=== PATIENT | female | born 1940 | race Caucasian/White ===

== ENCOUNTER 2022-03-26 13:36 | Outpatient (CLI) | payer MEDICARE, SELFPAY ==
[2022-03-26 18:28] LABS: Chloride* 103 mmol/L (96-114); Potassium* 4.9 mmol/L (3.6-5.1); Sodium* 139 mmol/L (135-149)
[2022-03-26 18:30] LABS: Cholesterol* 165 mg/dL (90-199)
[2022-03-26 18:31] LABS: Blood Urea Nitrogen* 15 mg/dL (7-30); Carbon Dioxide* 27 mmol/L (20-32); Creatinine* 0.7 mg/dL (0.5-1.5); Estimated Glomerular Filt Rate 86 ml/min; Glucose* 81 mg/dL (60-115); Triglycerides* 86 mg/dL (40-149)
[2022-03-26 18:32] LABS: Calcium* 9.8 mg/dL (8.4-10.6); HDL Cholesterol* 80 mg/dL (>=50); LDL Cholesterol Calculated 68 mg/dL (<100)
== END 2022-03-26 13:37 | disposition home or self-care (01) ==
PROVIDERS: PCP Family Medicine; Visit Provider Family Medicine
DX: Z00.00 Encounter for general adult medical examination without abnormal findings (principal); I10 Essential (primary) hypertension; E78.5 Hyperlipidemia, unspecified
CPT/HCPCS: 80048; 80061

== ENCOUNTER 2023-07-14 09:58 | Outpatient (CLI) | payer OTHER, SELFPAY | END 2023-07-14 09:59 | disposition home or self-care (01) | PROVIDERS: PCP Family Medicine; Visit Provider Family Medicine | DX: E78.5 Hyperlipidemia, unspecified (principal); I10 Essential (primary) hypertension; R53.83 Other fatigue; Z13.29 Encounter for screening for other suspected endocrine disorder | CPT/HCPCS: 80048; 80061; 84443 ==

== ENCOUNTER 2024-07-08 10:15 | Outpatient (CLI) | payer MEDICARE, SELFPAY | END 2024-07-08 10:16 | disposition home or self-care (01) | PROVIDERS: PCP Family Medicine; Visit Provider Family Medicine | DX: R53.83 Other fatigue (principal); I10 Essential (primary) hypertension; E78.00 Pure hypercholesterolemia, unspecified | CPT/HCPCS: 80048; 80061; 82607 ==

== ENCOUNTER 2025-02-09 12:30 | Emergency (ER) | payer MEDICARE, SELFPAY ==
[2025-02-09] VITALS (27 sets, daily range): BP systolic 111–156; BP diastolic 58–82; PULSE 73–88; RESP 4–27; TEMP 37.1; O2SAT 91–100; BMI 18.6
--- NOTE | 2025-02-09 13:04 | CRLHL7_ITS ---
For Patients: As a result of the Century Cures Act, medical imaging exams and procedure reports are released immediately into your electronic medical record. You may view this report before your referring provider. If you have questions, please contact your health care provider. INDICATION: Continuous vertigo. TECHNIQUE: CTA head using intravenous contrast with bolus tracking, 3D angiographic rendering using maximum intensity projection (MIP) and images permanently archived. CTA neck using intravenous contrast with bolus tracking, 3D angiographic rendering using maximum intensity projection (MIP) and images permanently archived. FINDINGS: CTA head: There is scattered intracranial atherosclerotic disease. There is normal opacification of the intracranial vasculature. There is no large vessel occlusion or significant intracranial stenosis. No aneurysm is identified. CTA neck: There is carotid atherosclerosis bilaterally. There is atherosclerotic plaque in the proximal left ICA resulting in a mild stenosis, less than 50% by NASCET. There is no significant right carotid artery stenosis or dissection. There is no significant vertebral artery stenosis or dissection. Degenerative changes are noted in the cervical spine. IMPRESSION: No acute intracranial abnormality at CTA. Mild proximal left ICA stenosis, less than 50% by NASCET. Please note that all CT scans at this facility use dose modulation, iterative reconstruction, and/or weight-based dosing when appropriate to reduce radiation dose to as low as reasonably achievable. Dictated by Jason Farmer MD @ 02/09/2025 3:33:54 PM (Electronically Signed)
--- NOTE | 2025-02-09 13:04 | CRLHL7_ITS ---
For Patients: As a result of the Century Cures Act, medical imaging exams and procedure reports are released immediately into your electronic medical record. You may view this report before your referring provider. If you have questions, please contact your health care provider. INDICATION: CONTINUOUS VERTIGO COMPARISON: None TECHNIQUE: CT of the head without contrast. FINDINGS: Brain Parenchyma: Mild global cortical involutional changes. No acute infarct, acute intracranial hemorrhage, mass effect, or midline shift. Faint periventricular and supraventricular white matter hypodensity, suggestive of chronic microvascular ischemic changes. Ventricles: Mild ventricular enlargement, commensurate with the degree of cortical involutional changes and sulcal prominence. Extra-axial Spaces: No abnormal fluid collection. Paranasal sinuses: No significant mucosal thickening. Orbits: Unremarkable Mastoid Sinuses: Unremarkable Cranium: No acute fracture Soft tissues: Unremarkable IMPRESSION: No CT evidence of an acute intracranial process. Please note that all CT scans at this facility use dose modulation, iterative reconstruction, and/or weight-based dosing when appropriate to reduce radiation dose to as low as reasonably achievable. Dictated by Adria Thoedore MD @ 02/09/2025 2:09:29 PM (Electronically Signed)
[2025-02-09] MEDS: ONDANSETRON 2 MG/ML inj 4 MG IVP (13:22)
[2025-02-09] MEDS: MECLIZINE HCL 25 MG TABLET PO (13:22)
[2025-02-09 13:24] LABS: Lactate* 2.6 mmol/L (0.5-1.9)
--- NOTE | 2025-02-09 13:25 | ED.GENADULT ---
HPI - General Adult General Date Seen: 02/09/25 Chief complaint: Dizziness/Vertigo Stated complaint: Anxiety attack Time Seen by Provider: 02/09/25 13:00 History of Present Illness HPI narrative: 84-year-old female with a past medical history of hypertension, dyslipidemia, fibromyalgia, and 1 previous history of vertigo (years ago, patient does not remember dates or cause). She presents to the ER today by private car for acute onset of vertigo. She has been healthy and well lately. She was normal this morning when she got up and went for a walk with her and felt fine. At about 10:00 a.m. this morning she was leaving her apartment to go to the [employer] in her apartment building when she had onset of siding spinning dizziness, unsteadiness, like her head is floating, and vertigo. Symptoms have been persistent since onset. However she was stubborn and wanted to go get her hair styled. She went through a hair styling point with symptoms of spinning dizziness and unsteadiness. Symptoms were persistent and after her visit to the [employer] [facility] she told her that she wanted to go lay down. However her symptoms got worse so they called 911. She was checked out by EMS. They were offered EMS transport to the hospital but they chose to come to the ER by private car. She is still having symptoms of spinning vertigo while she is here. She is nauseous but has not vomited. She does not have a headache. No diplopia or blurry vision. She does have chronic hearing loss but no new change with hearing. No tinnitus. No numbness in her face. No numbness or weakness in her arms or legs. No facial droop. No slurred speech. No known head trauma. She is on baby aspirin but she is not anticoagulated. She is not having any chest pain. No palpitations. She did not fall. No syncope. No abdominal pain. No back pain. No swelling in her legs. Related Data Home Medications ?Medication ?Instructions ?Recorded ?Confirmed alendronate 1 tab PO DAILY 02/09/25 02/09/25 Previous Rx's ?Medication ?Instructions ?Recorded aspirin 81 mg tablet,delayed 81 mg PO QDAY #100 tabs 06/12/23 release alendronate 70 mg tablet 70 mg PO .Weekly #12 tabs 07/08/24 amlodipine 5 mg-benazepril 20 mg 2 cap PO DAILY #180 caps 07/08/24 capsule atorvastatin 10 mg tablet 10 mg PO .Bedtime #90 tabs 07/08/24 hydrochlorothiazide 12.5 mg tablet 12.5 mg PO QDAY #90 tabs 07/08/24 meclizine 25 mg tablet 25 mg PO TID #15 tabs 02/09/25 ondansetron HCl 4 mg tablet 4 mg PO Q8H PRN nausea and 02/09/25 vomiting #10 tabs Allergies Allergy/AdvReac Type Severity Reaction Status Date / Time codeine Allergy Mild Chest Pain Verified 02/09/25 13:57 latex Allergy Unknown Verified 02/09/25 13:57 [facility] Medical History Hypertension (08/25/12) ?I10 - Essential (primary) hypertension (ICD-10) Hyperlipidemia (08/25/12) ?E78.5 - Hyperlipidemia, unspecified (ICD-10) Fibromyalgia (08/25/12) ?M79.7 - Fibromyalgia (ICD-10) Osteoarthritis of lumbar spine ?M47.816 - Spondylosis without myelopathy or radiculopathy, lumbar region (ICD-10) Osteopenia (08/25/12) ?M85.80 - Other specified disorders of bone density and structure, unspecified site (ICD-10) Insomnia ?G47.00 - Insomnia, unspecified (ICD-10) Seasonal allergies ?J30.2 - Other seasonal allergic rhinitis (ICD-10) Polyp of colon (08/25/12) ?K63.5 - Polyp of colon (ICD-10) Peripheral vascular disease ?I73.9 - Peripheral vascular disease, unspecified (ICD-10) Hearing loss (08/25/12) ?H91.90 - Unspecified hearing loss, unspecified ear (ICD-10) Anosmia ?R43.0 - Anosmia (ICD-10) Surgical History Status post cholecystectomy ?Z90.49 - Acquired absence of other specified parts of digestive tract (ICD-10) Status post cataract extraction ?Z98.49 - Cataract extraction status, unspecified eye (ICD-10) Status post carpal tunnel release ?Z98.890 - Other specified postprocedural states (ICD-10) Status post bunionectomy ?Z98.890 - Other specified postprocedural states (ICD-10) Status post appendectomy ?Z90.49 - Acquired absence of other specified parts of digestive tract (ICD-10) Social History What is your current living situation?: I presently have a place to live Problems where you live: no known problems In the past 12 months, utilities in danger of being shut off: no In past 12 months, lack of transportation kept you from medical appts, meetings, work, or getting things needed for daily living: no In the past 12 mos, have been you worried that your food would run out before you had money to buy more?: never true In the past 12 mos, the food you bought just didn't last and you didn't have money to buy more?: never true Smoking Status: Never smoker Do you use any of these nicotine containing products: None Second hand tobacco smoke exposure: No (quit many yrsd ago) Non-prescribed substance use: denies use How often does anyone, including family, friends and others, physically hurt you: never How often does anyone, including family, friends and others, insult or talk down to you: rarely How often does anyone, including family, friends and others, threaten you with harm: never How often does anyone, including family, friends and others, scream or curse at you: never Health Related Social Needs: Other personal risk factors, not elsewhere classified (Z91.89) Exam Narrative: Exam Narrative: Constitutional: Appears well-developed and well-nourished. Alert. Conversant, but looks sick. She is holding an emesis bag because she is very nauseous. Non toxic. HENT: Head: Atraumatic. Nose: Nose normal. Mouth/Throat: Oral mucosa is clear and moist. no trismus. Pharynx normal. Tonsils symmetric. No tonsillar enlargement, erythema, or exudate. Eyes: Conjunctivae normal. EOM normal. Pupils equal, round, and reactive to light. No scleral icterus. Neck: Normal range of motion. Neck supple. No tracheal deviation present. No JVD Cardiovascular: Normal rate, regular rhythm. No gallop. No friction rub. No murmur heard. Symmetric radial and PT artery pulses Pulmonary/Chest: Effort normal. No stridor. No respiratory distress. No wheezes. No rales. No rhonchi . No tenderness. Abdominal: Soft.. No distension. No mass. No tenderness. No rebound. No guarding. Musculoskeletal: RUE: Normal range of motion. No tenderness. No deformity LUE: Normal range of motion. No tenderness. No deformity RLE: Normal range of motion. No edema. No tenderness. No deformity LLE: Normal range of motion. No edema. No tenderness. No deformity Lymph: No cervical adenopathy. Neurological: Mental status normal. Attention normal. Alert and oriented x3. GCS 15. Memory normal. Speech fluent. Cognition normal. Cranial Nerves intact II-XII except I did not formally test gag or visual acuity. EOMI. Palate elevates symmetrically and tongue protrudes in the midline. Strength: 5/5 trapezius on the right and left 5/5 deltoid on the right and left 5/5 biceps on the right and left 5/5 triceps on the right and left 5/5 hydro electric station operator on the right and left 5/5 thumb opposition on the right and left 5/5 finger abduction on the right and left 5/5 hip flexors (L3) on the right and left 5/5 quadriceps (L4) on the right and left 5/5 tibialis anterior on the right and left 5/5 EHL (L5) on the right and left 5/5 gastrocnemius (S1) on the right and left 5/5 hamstring on the right and left Sensation intact to light touch in both upper extremities (C4-T1) Sensation intact to light touch in Both lower extremities (L4-S1). Finger to nose and coordination normal. Gait not assessed due to unsteadiness and nausea Skin: Skin is warm and dry. No rash noted. No pallor. Normal capillary refill. Psychiatric: Normal mood. Normal affect. Const: Vital Signs, click to edit/add: Vital Signs - 24 hr 02/09/25 12:49 02/09/25 13:00 02/09/25 13:03 Temperature 98.7 F Pulse Rate 81 Pulse Rate [Pulse Oximeter] 86 75 Respiratory Rate 16 Blood Pressure 141/71 H Blood Pressure [Ri ght Upper Arm] 111/62 Pulse Oximetry 99 99 Oxygen Delivery Me thod Room Air 02/09/25 13:04 02/09/25 13:15 02/09/25 13:22 Temperature Pulse Rate 81 80 76 Pulse Rate [Pulse Oximeter] Respiratory Rate 22 13 15 Blood Pressure 150/72 H Blood Pressure [Ri ght Upper Arm] Pulse Oximetry 98 97 97 Oxygen Delivery Me thod 02/09/25 13:30 02/09/25 13:36 02/09/25 13:56 Temperature Pulse Rate 79 73 88 Pulse Rate [Pulse Oximeter] Respiratory Rate 21 8 L 19 Blood Pressure 156/82 H Blood Pressure [Ri ght Upper Arm] Pulse Oximetry 98 96 100 Oxygen Delivery Me thod 02/09/25 13:59 02/09/25 14:00 02/09/25 14:10 Temperature Pulse Rate 86 88 81 Pulse Rate [Pulse Oximeter] Respiratory Rate 10 L 27 H 16 Blood Pressure 136/69 124/58 L Blood Pressure [Ri ght Upper Arm] Pulse Oximetry 100 100 100 Oxygen Delivery Me thod 02/09/25 14:15 02/09/25 14:30 02/09/25 14:31 Temperature Pulse Rate 86 81 80 Pulse Rate [Pulse Oximeter] Respiratory Rate 26 H 21 14 Blood Pressure 145/73 H Blood Pressure [Ri ght Upper Arm] Pulse Oximetry 100 98 97 Oxygen Delivery Me thod 02/09/25 14:35 02/09/25 14:45 02/09/25 14:50 Temperature Pulse Rate 83 79 77 Pulse Rate [Pulse Oximeter] Respiratory Rate 27 H 27 H 17 Blood Pressure 139/67 127/64 Blood Pressure [Ri ght Upper Arm] Pulse Oximetry 95 94 91 Oxygen Delivery Me thod 02/09/25 15:00 02/09/25 15:05 Temperature Pulse Rate 77 75 Pulse Rate [Pulse Oximeter] Respiratory Rate 16 12 Blood Pressure 125/64 Blood Pressure [Ri ght Upper Arm] Pulse Oximetry 95 94 Oxygen Delivery Me thod Course Course ED Course: Patient arrived and was brought immediately to ER bed 5. Nurses came to get me. They were concerned about possible stroke. We did order meds for nausea and vertigo and I ordered stat head CT scan and CT angiogram. On my initial exam she is having isolated vertigo without any other clear brain stand symptoms. Would favor that this is probably a peripheral vertigo, but given age, risk factors, as well as intensity and continuous nature of vertigo, cannot completely rule out a central cause such as cerebellar infarct or hemorrhage. Reevaluation(s) Reevaluation #1: A stroke team activation was initiated for this patient because of her vertigo. However after my initial evaluation the seems to be more suggestive of a peripheral vertigo. She did pain CT imaging and CTA which are normal. Recheck-after Zofran still nauseous Recheck-after Reglan and meclizine she is feeling much better. Vertigo resolved. She is ambulatory without assistance. No other evolving neurologic symptoms. She feels comfortable discharging home. Vital Signs Vital signs: Initial Vital Signs Temperature 98.7 F 02/09/25 12:49 Temperature Source Temporal Artery Scan 02/09/25 12:49 Pulse Rate 86 02/09/25 12:49 Respiratory Rate 16 02/09/25 12:49 Blood Pressure 111/62 02/09/25 12:49 Blood Pressure Mean 78 02/09/25 12:49 Blood Pressure Position Sitting 02/09/25 12:49 Pulse Oximetry 99 02/09/25 12:49 Oxygen Delivery Method Room Air 02/09/25 12:49 Vital Signs Temperature 98.7 F 02/09/25 12:49 Pulse Rate 86 02/09/25 12:49 Respiratory Rate 16 02/09/25 12:49 Blood Pressure 111/62 02/09/25 12:49 Pulse Oximetry 99 02/09/25 12:49 Oxygen Delivery Method Room Air 02/09/25 12:49 Temperature 98.7 F 02/09/25 12:49 Pulse Rate 75 02/09/25 15:05 Respiratory Rate 12 02/09/25 15:05 Blood Pressure 125/64 02/09/25 15:05 Pulse Oximetry 94 02/09/25 15:05 Oxygen Delivery Method Room Air 02/09/25 12:49 Medications Administered Medications: Discontinued Medications Generic Name Dose Route Start Last Admin Trade Name Freq PRN Reason Stop Dose Admin Meclizine HCl 25 mg 02/09/25 13:04 02/09/25 13:22 Meclizine Hcl 25 Mg Tablet PO 02/09/25 13:05 25 mg ONCE ONE Administration Metoclopramide HCl 10 mg 02/09/25 14:01 02/09/25 14:06 Metoclopramide Hcl 5 Mg/Ml Inj IVP 02/09/25 14:02 10 mg ONCE ONE Administration Ondansetron HCl 4 mg 02/09/25 13:04 02/09/25 13:22 Ondansetron 2 Mg/Ml Inj IVP 02/09/25 13:05 4 mg ONCE ONE Administration Medical Decision Making MDM Narrative Medical decision making narrative: This patient presents for evaluation of dizziness c/w vertigo. The differential diagnosis of vertigo is broad and includes common etiologies such as menieres disease, labyrinthitis, benign positional vertigo, otitis media, etc. More serious etiologies considered include central etiologies such as tumor, intracerebral bleed, dissection, ischemic cerebral vascular accident. Because of age, risk factors (hypertension, lipids) a stroke team activation was undertaken for this patient and so far workup is normal. Head CT is negative. CTA is normal. No evidence for ICH. Discussed with the patient that MRI would be more definitive to look for cerebellar infarct/brainstem infarct as a cause for vertigo but since her symptoms have now completely resolved, I think it is reasonable to forego that imaging. The history, physical exam including detailed neurologic exam, and workup in the emergency room suggests a benign cause of vertigo today. Patient feels improved after interventions noted above. Further outpatient management is indicated with vertigo medications. Vertigo precautions given for home. Prescriptions for meclizine and Zofran to use p.r.n.. Carefully reviewed return precautions and need for follow-up. Questions answered. Lab Data Labs: Lab Results 02/09/25 Range/Units 13:15 WBC 9.39 (4.50-11.00) K/uL RBC 4.14 (4.00-5.20) m/uL Hgb 12.1 (12.0-16.0) gm/dL Hct 36.3 (33.0-51.0) % MCV 88 (80-100) fL MCH 29 (26-34) pg MCHC 33 (32-36) gm/dL RDW Coeff of Nanette 12.4 (11.5-15.5) % Plt Count 246 (140-440) K/uL Neut % (Auto) 85.0 H (42.0-72.0) % Lymph % (Auto) 6.4 L (20-44) % [place] % (Auto) 6.1 (0.0-11.0) % Eos % (Auto) 1.0 (0.0-7.0) % Baso % (Auto) 1.0 (0.0-3.0) % Neut # (Auto) 8.00 H (1.7-7.0) K/uL Lymph # (Auto) 0.60 L (0.90-2.90) K/uL [place] # (Auto) 0.60 (0.00-0.90) K/UL Eos # (Auto) 0.09 (0.00-0.50) K/uL Baso # (Auto) 0.09 (0.00-0.30) K/uL Abs Immat Gran (auto) 0.05 (0.00-0.30) K/uL Imm/Tot Granulo (auto) 0.5 % INR 0.93 (0.91-1.10) Sodium 137 (135-149) mmol/L Potassium 3.5 L (3.6-5.1) mmol/L Chloride 102 (96-114) mmol/L Carbon Dioxide 25 (20-32) mmol/L Anion Gap 10 (7-15) mEq/L BUN 18 (7-30) mg/dL Creatinine 0.8 (0.5-1.5) mg/dL Estimated Creat Clear 30.36 Estimated GFR 72 ml/min Glucose 125 H (60-115) mg/dL Lactate 2.6 H (0.5-1.9) mmol/L Calcium 9.9 (8.4-10.6) mg/dL Troponin I < 0.01 (0.01-0.04) ng/mL Imaging Data CT scan - head: Attestation: I have reviewed the pertinent imaging results. Radiologist's impression: IMPRESSION: No CT evidence of an acute intracranial process. CTA Head adn Neck: Attestation: I have reviewed the pertinent imaging results. Radiologist's impression: Preliminary Report: CTA head: No proximal intracranial arterial occlusions, filling defects or high-grade stenoses. No aneurysm. CTA neck: No high-grade stenosis or filling defects are identified in the cervical carotid systems or cervical vertebral arteries. No dissection identified. Approximately 50 percent stenosis at the origin of the left internal carotid artery secondary to atherosclerotic disease. ECG Data Attestation: I personally reviewed and interpreted this ECG as follows: Interpretation: Normal sinus rhythm Rate 82 [place] interval 150 Normal QRS axis Nonspecific T-wave flattening. No ST segment elevation or depression. QT 336, QTC 392 Discharge Plan Discharge Clinical Impression: Vertigo Patient Disposition: Home, Self-Care Condition: Stable Instructions: Vertigo (DC) Additional Instructions: As we discussed, please return to the ER right away if you have worsening or more severe vertigo, double vision, vomiting, any numbness or weakness in your face, arms, or legs, headache, or any other worsening symptoms. Please recheck with your regular doctor in 1-3 days. You can use the meclizine or Reglan if needed to help treat vertigo or nausea at home. Please continue on your other regular medications. Remember, we want you to come back to the ER right away if you are having worsening symptoms or any problems. Prescriptions: New meclizine 25 mg tablet 25 mg PO TID Qty: 15 0RF ondansetron HCl 4 mg tablet 4 mg PO Q8H PRN (Reason: nausea and vomiting) Qty: 10 0RF No Action alendronate 70 mg tablet 70 mg PO .Weekly Qty: 12 3RF amlodipine-benazepril 5-20 mg capsule 2 cap PO DAILY Qty: 180 3RF atorvastatin 10 mg tablet 10 mg PO .Bedtime Qty: 90 3RF hydrochlorothiazide 12.5 mg tablet 12.5 mg PO QDAY Qty: 90 3RF alendronate 1 tab PO DAILY aspirin 81 mg tablet,delayed release (DR/EC) 81 mg PO QDAY Qty: 100 3RF Follow Up/Referrals: Pastor Denton MD [Primary Care Provider, Family Practice] Stand Alone Forms: TestObject Info Instructions
[2025-02-09 13:28] LABS: Hematocrit* 36.3 % (33.0-51.0); Hemoglobin* 12.1 gm/dL (12.0-16.0); Immature Granulocytes Abs Auto 0.05 K/uL (0.00-0.30); Immature Granulocytes Pct Auto 0.5 %; Lymphocytes Absolute Auto 0.60 K/uL (0.90-2.90); Mean Corpuscular HGB Conc 33 gm/dL (32-36); Mean Corpuscular Hemoglobin 29 pg (26-34); Mean Corpuscular Volume 88 fL (80-100); RDW Coefficient of Variation % 12.4 % (11.5-15.5); Red Blood Count* 4.14 m/uL (4.00-5.20); White Blood Count* 9.39 K/uL (4.50-11.00)
[2025-02-09 13:33] LABS: Slide Review Reflex No
[2025-02-09 13:41] LABS: Chloride* 102 mmol/L (96-114); Potassium* 3.5 mmol/L (3.6-5.1); Sodium* 137 mmol/L (135-149)
[2025-02-09 13:44] LABS: Anion Gap 10 mEq/L (7-15); Blood Urea Nitrogen* 18 mg/dL (7-30); Carbon Dioxide* 25 mmol/L (20-32); Creatinine* 0.8 mg/dL (0.5-1.5); Est. Creatinine Clearance* 30.36; Estimated Glomerular Filt Rate 72 ml/min
[2025-02-09 13:45] LABS: Calcium* 9.9 mg/dL (8.4-10.6); Glucose* 125 mg/dL (60-115)
[2025-02-09 13:50] LABS: INR 0.93 (0.91-1.10); Prothrombin Time 13.2 Seconds
[2025-02-09] MEDS: METOCLOPRAMIDE HCL 5 MG/ML INJ 10 MG IVP (14:06)
[2025-02-09 16:07] LABS: Appearance Urine Clear (Clear)
== END 2025-02-09 16:17 | disposition home or self-care (01) ==
PROVIDERS: Emergency Provider Emergency Medicine; PCP Family Medicine
DX: R42 Dizziness and giddiness (principal)
CPT/HCPCS: 36415; 70450; 70496; 70498; 80048; 81001; 83605; 84484; 85025; 85610; 93005; 96374; 96375; 99283; 99284; 99285; A9270; J2405; J2765; Q9967